=== PATIENT | female | born 1985 ===

== ENCOUNTER 2018-09-16 14:22 | Emergency (ER) | payer OTHER ==
[2018-09-16 15:23] VITALS: TEMP 98.7
--- NOTE | 2018-09-16 15:49 | ED PDOC ---
HPI: Female Pain Time Seen by Provider: 09/16/18 15:26 Chief Complaint (Nursing): Female Genitourinary Chief Complaint (Provider): with abd pain History Per: Patient Additional Complaint(s): 33-year-old female currently 8 weeks presents with right-sided abdominal pain that started this morning. Patient was seen at urgent care and was sent to ED for rule out ectopic . Patient denies any vaginal bleeding. She denies fever, chills or dysuria. This is patient's second and she has one child. Patient does state that this morning the pain was more intense and has subsided throughout the day. OB: In [facility] Past Medical History Reviewed: Historical Data, Nursing Documentation, Vital Signs Vital Signs: Last Vital Signs Temp 98.7 F 09/16/18 15:21 Pulse 82 09/16/18 15:21 Resp 18 09/16/18 15:21 BP 107/70 09/16/18 15:21 Pulse Ox 100 09/16/18 15:21 - Medical History PMH: No Chronic Diseases Other PMH: - Surgical History Surgical History: (x 1) - Family History Family History: States: No Known Family Hx - Living Arrangements Living Arrangements: With Family - Social History Current smoker - smoking cessation education provided: No Alcohol: None Drugs: Denies - Home Medications Home Medications: Ambulatory Orders Medication Instructions Recorded Nitrofurantoin Macrocrystals 100 mg PO BID #14 cap 09/16/18 [Macrobid] - Allergies Allergies/Adverse Reactions: Allergies Allergy/AdvReac Type Severity Reaction Status Date / Time No Known Allergies Allergy Verified 09/16/18 15:21 Review of Systems ROS Statement: Except As Marked, All Systems Reviewed And Found Negative Constitutional: Negative for: Fever Gastrointestinal: Negative for: Nausea, Vomiting, Diarrhea, Constipation Genitourinary Female: Positive for: Pelvic Pain (right sided). Negative for: Dysuria, Frequency, Incontinence, Hematuria, Vaginal Discharge, Vaginal Bleeding Physical Exam - Reviewed Nursing Documentation Reviewed: Yes Vital Signs Reviewed: Yes - Physical Exam Appears: Positive for: Well, Non-toxic, No Acute Distress Skin: Positive for: Normal Color. Negative for: Rash Eye Exam: Positive for: Normal appearance Cardiovascular/Chest: Positive for: Regular Rate, Rhythm Respiratory: Positive for: Normal Breath Sounds. Negative for: Wheezing, Respiratory Distress Gastrointestinal/Abdominal: Positive for: Soft. Negative for: Tenderness, Distended, Guarding, Rebound Back: Negative for: L CVA Tenderness, R CVA Tenderness Extremity: Positive for: Normal ROM Neurologic/Psych: Positive for: Alert, Oriented - Laboratory Results Result Diagrams: 09/16/18 16:26 09/16/18 16:26 Urine POC: Positive Urine dip results: Positive for: Leukocyte Esterase. Negative for: Blood, Nitrate, Ketones, Glucose, Bilirubin, Protein - ECG O2 Sat by Pulse Oximetry: 100 Pulse Ox Interpretation: Normal - Other Rad OB TV US X-Ray: Read By Radiologist X-Ray Interpretation: see below Medical Decision Making Medical Decision Makin33 y/o female with abdominal pain Plan: UA and culture CBC CMP Beta quant OB TV US IVF US: IMPRESSION: A single viable intrauterine gestation identified with average pelvic age of 7 weeks 6 days by CRL mean. cardiac activity 156 beats per minute. Trace hemorrhage may be related to the inferior margins of the chorion as discussed above. Clinically correlate further. Patient is aware of diagnostic testing results, all questions answered. P rescription for Macrobid provided. Patient was advised to follow-up with her OB. Disposition - Clinical Impression Clinical Impression: Abdominal pain during , Urinary tract infection - Patient ED Disposition Is Patient to be Admitted: No Counseled Patient/Family Regarding: Studies Performed, Diagnosis, Need For Followup, Rx Given - Disposition [facility] Disposition: Routine/Home Disposition Time: 18:38 Condition: STABLE Additional Instructions: Take prescription meds as directed. Drink plenty of fluids. Tylenol for pain as needed. Follow-up with your OB next week. Prescriptions: Nitrofurantoin Macrocrystals [Macrobid] 100 mg PO BID #14 cap Instructions: Urinary Tract Infection, Adult (DC), - The Second Month Forms: [employer] ([place]) Results - Lab Results Lab Results: 09/16/18 09/16/18 09/16/18 16:26 16:26 15:50 WBC 8.3 RBC 4.31 Hgb 13.4 Hct 39.6 MCV 91.8 MCH 31.2 H MCHC 33.9 RDW 13.3 Plt Count 220 MPV 8.7 Neut % (Auto) 73.6 Lymph % (Auto) 20.7 [place] % (Auto) 4.6 Eos % (Auto) 0.6 Baso % (Auto) 0.5 Neut # (Auto) 6.1 Lymph # (Auto) 1.7 [place] # (Auto) 0.4 Eos # (Auto) 0.1 Baso # (Auto) 0.0 Sodium 139 Potassium 4.2 Chloride 107 Carbon Dioxide 24 Anion Gap 12 BUN 10 Creatinine 0.6 L Est GFR ( Amer) > 60 Est GFR (Non-Af Amer) > 60 Random Glucose 130 H Calcium 9.6 Total Bilirubin 0.1 L AST 17 ALT 26 Alkaline Phosphatase 42 Total Protein 6.7 Albumin 4.1 Globulin 2.6 Albumin/Globulin Ratio 1.6 Beta HCG, Quant 318819.00 Urine Color Yellow Urine Clarity Slighty-cloudy Urine pH 6.0 Ur Specific [place] 1.012 Urine Protein Negative Urine Glucose (UA) Neg Urine Ketones Negative Urine Blood Trace H Urine Nitrate Negative Urine Bilirubin Negative Urine Urobilinogen 0.2-1.0 Ur Leukocyte Esterase Trace Urine RBC (Auto) 3 Urine Microscopic WBC 5 Ur Squamous Epith Cells < 1
[2018-09-16 16:03] LABS: SQUAMOUS EPITHIAL < 1 /hpf (0-5); URINE BILIRUBIN NEGATIVE (NEGATIVE); URINE CLARITY SLIGHTY-CLOUDY (Clear); URINE COLOR YELLOW (YELLOW); URINE GLUCOSE (UA) NEG (Normal); URINE LEUKOCYTE ESTERASE TRACE Leu/uL (Negative); URINE PROTEIN NEGATIVE (NEGATIVE); URINE UROBILINOGEN 0.2-1.0 mg/dL (0.2-1.0)
[2018-09-16 16:05] LABS: URINE BLOOD TRACE (NEGATIVE)
[2018-09-16] MEDS ORDERED: Sodium Chloride 0.9% 1,000 ML IV STA (16:12)
[2018-09-16 16:30] LABS: BASO % 0.5 % (0.0-2.0); EOS # 0.1 K/uL (0.0-0.7); EOS % 0.6 % (0.0-4.0); HEMOGLOBIN 13.4 g/dL (12.0-16.0); LYMPH # 1.7 K/uL (1.0-4.3); LYMPH % 20.7 % (20.0-40.0); MEAN CELL VOLUME 91.8 fl (81.0-99.0); MEAN CORPUSCULAR HEMOGLOBIN 31.2 pg (27.0-31.0); MEAN CORPUSCULAR HGB CONC 33.9 g/dL (33.0-37.0); MEAN PLATELET VOLUME 8.7 fl (7.2-11.7); MONO # 0.4 K/uL (0.0-0.8); MONO % 4.6 % (0.0-10.0); NEUT # 6.1 K/uL (1.8-7.0); NEUT % 73.6 % (50.0-75.0); RBC 4.31 Mil/uL (3.80-5.20); RED CELL DISTRIBUTION WIDTH 13.3 % (11.5-14.5); WHITE BLOOD COUNT 8.3 K/uL (4.8-10.8)
[2018-09-16 16:39] LABS: ALB/GLOB RATIO 1.6 (1.0-2.1); ALBUMIN 4.1 g/dL (3.5-5.0); ALT/SGPT 26 U/L (9-52); AST/SGOT 17 U/L (14-36); BLOOD UREA NITROGEN 10 mg/dl (7-17); CALCIUM 9.6 mg/dL (8.4-10.2); GFR NON-AFRICAN AMERICAN > 60
--- NOTE | 2018-09-16 18:23 | US ---
Date of service: 09/16/2018 PROCEDURE: OB Pelvic Ultrasound HISTORY: 8 weeks with right side abd pain LMP: LMP 07/19/2018 suggest gestation of 8 weeks 3 days. COMPARISON: None available. FINDINGS: UTERUS: Gestational sac: Single intrauterine gestation. Mean sac diameter 3.2 cm corresponds to 8 weeks 1 day. Heart rate: 156 bpm. age (Ultrasound estimated): 7 weeks 6 days, concordant with LMP derived dates. Vanessa-gestational hemorrhage: Trace subacute or even chronic hemorrhage may have developed at the inferior margins of the decidual reaction. Date of delivery (Ultrasound estimated) : 04/28/2019. Uterus measures 12.0 x 7.0 x 5.3 cm. Normal in size and appearance. CERVIX: Measures 3.9 cm. Long and closed. No cervical abnormality seen. RIGHT OVARY: Measures 2.7 x 1.4 x 2.9 cm. No mass lesion. Normal flow. LEFT OVARY: Measures 1.8 x 1.1 x 1.9 cm. No solid mass. Normal flow. FREE FLUID: None. OTHER FINDINGS: None. IMPRESSION: A single viable intrauterine gestation identified with average pelvic age of 7 weeks 6 days by CRL mean. cardiac activity 156 beats per minute. Trace hemorrhage may be related to the inferior margins of the chorion as discussed above. Clinically correlate further.
[2018-09-16 18:58] VITALS: BP 110/69; PULSE 69; RESP 16; O2SAT 99
== END 2018-09-16 18:54 | disposition home or self-care (01) ==
LOC: H.ER 14:22
DX: O26.891 Other specified pregnancy related conditions, first trimester (principal); R10.2 Pelvic and perineal pain; Z3A.08 8 weeks gestation of pregnancy; O23.41 Unspecified infection of urinary tract in pregnancy, first trimester
CPT/HCPCS: 76815; 80053; 81003; 81025; 84702; 85025; 87086; 99284; J7030